=== PATIENT | male | born 1980 | race Caucasian/White ===

== ENCOUNTER 2021-04-21 03:54 | Emergency (ER) | payer MEDICAID ==
[~2021-04-21] VITALS: Ht 172.7 cm; Wt 72.0 kg
[2021-04-21 06:00] LABS: BASOPHILS % 0.8 % (0.0-2.0); EOSINOPHILS % 3.7 % (0.0-5.0); HEMATOCRIT. 36.9 % (42.0-52.0); HEMOGLOBIN. 12.3 g/dL (14.0-18.0); LYMPHOCYTES % 25.1 % (20.0-50.0); MEAN CORPUSCULAR HEMOGLOBIN 27.7 pg (28.0-32.0); MEAN CORPUSCULAR VOLUME 83.2 fL (80.0-94.0); MEAN PLATELET VOLUME 7.8 fl (7.4-10.4); MONOCYTES % 8.6 % (2.0-8.0); NEUTROPHILS % 61.8 % (40.0-76.0); PLATELET 298 x1000/uL (130-400); RED BLOOD CELL COUNT 4.43 mill/uL (4.7-6.1); RED CELL DISTRIBUTION WIDTH 14.1 % (11.6-14.6)
[2021-04-21 06:11] LABS: CHLORIDE 107 mEq/L (98-107)
[2021-04-21 06:16] LABS: ETHANOL BLOOD < 10 mg/dL
[2021-04-21 09:30] VITALS: BP 120/80
== END 2021-04-21 10:15 ==
LOC: ER 03:54
DX: R41.82 Altered mental status, unspecified (principal); V49.40XA Driver injured in collision with unspecified motor vehicles in traffic accident, initial encounter; Y93.89 Activity, other specified; F15.10 Other stimulant abuse, uncomplicated; D64.9 Anemia, unspecified; Y92.488 Other paved roadways as the place of occurrence of the external cause
CPT/HCPCS: 36415; 71045; 80053; 80320; 85025; 93005; 99285; G0480

== ENCOUNTER 2022-07-02 18:49 | Emergency (ER) | payer MEDICAID ==
[~2022-07-02] VITALS: Ht 177.8 cm; Wt 82.0 kg
[2022-07-02] MEDS ORDERED: MORPHINE SULFATE 4 MG/ML CPJ (NOT FOR IM USE) IV ONE (20:45)
[2022-07-02] MEDS ORDERED: KETOROLAC 30MG/ML VIAL IM ONE (20:45)
[2022-07-02] MEDS ORDERED: MORPHINE SULFATE 4 MG/ML CPJ (NOT FOR IM USE) IV NR (22:45)
[2022-07-02 23:21] LABS: BASOPHILS % 0.2 % (0.0-2.0); EOSINOPHILS % 0.4 % (0.0-5.0); HEMATOCRIT. 37.8 % (42.0-52.0); LYMPHOCYTES % 8.6 % (20.0-50.0); MEAN CORPUSCULAR HEMOGLOBIN 29.1 pg (28.0-32.0); MEAN CORPUSCULAR VOLUME 84.4 fL (80.0-94.0); MONOCYTES % 5.4 % (2.0-8.0); NEUTROPHILS % 85.4 % (40.0-76.0); RED BLOOD CELL COUNT 4.48 mill/uL (4.7-6.1)
[2022-07-02 23:23] LABS: CHLORIDE 106 mEq/L (98-107)
[2022-07-02 23:26] LABS: PROTHROMBIN TIME 10.5 sec (9.6-11.0)
[2022-07-02 23:34] LABS: CREATINE KINASE 427 IU/L (39-308)
[2022-07-03] MEDS ORDERED: CEFAZOLIN 1000MG PREMIX 50 ML IV ONE (00:30)
[2022-07-03 01:14] LABS: PLATELET 297 x1000/uL (130-400)
[2022-07-03 01:15] LABS: MEAN PLATELET VOLUME 8.4 fl (7.4-10.4)
[2022-07-03] MEDS ORDERED: SODIUM CHLORIDE 0.9% 1,000 ML IV NR (01:45)
[2022-07-03] MEDS ORDERED: IOHEXOL-350 100 ML BOTTLE ONE ×2 (01:57→09:37)
[2022-07-03] MEDS ORDERED: TETANUS, DIPHTHERIA, PERTUSSIS VAC/PF 0.5ML (>10YR OLD) IM ONE (02:15)
[2022-07-03] MEDS ORDERED: HYDROMORPHONE HCL/PF 2MG/ML CPJ IV STA (02:30)
[2022-07-03] MEDS ORDERED: CEFAZOLIN 1000MG PREMIX 50 ML IV NR (02:45)
[2022-07-03] MEDS ORDERED: MORPHINE SULFATE 4 MG/ML CPJ (NOT FOR IM USE) IV ONE ×2 (07:15→15:00)
[2022-07-03] MEDS ORDERED: LORAZEPAM 2MG/ML CPJ IV ONE (08:15)
[2022-07-03 18:00] VITALS: BP 123/73
== END 2022-07-03 23:05 | disposition short-term general hospital (02) ==
LOC: ER 18:49
DX: S41.132A Puncture wound without foreign body of left upper arm, initial encounter (principal); S50.852A Superficial foreign body of left forearm, initial encounter; R74.8 Abnormal levels of other serum enzymes; Z79.899 Other long term (current) drug therapy; Y35.091A Legal intervention involving other firearm discharge, law enforcement official injured, initial encounter; Y93.89 Activity, other specified; Y92.89 Other specified places as the place of occurrence of the external cause; Y99.8 Other external cause status
CPT/HCPCS: 36415; 71045; 73060; 73090; 73206; 76937; 80048; 82550; 85025; 85610; 86850; 86900; 86901; 90471; 90715; 93005; 96365; 96375; 96376; 99285; C1725; J0690; J1170; J2270; Q9967; Z7610; J2060